=== PATIENT | female | born 1940 | race African-American/Black ===

== ENCOUNTER 2024-07-21 09:51 | Emergency (ER) | payer BC ==
[~2024-07-21] VITALS: Ht 170.2 cm; Wt 86.0 kg
[2024-07-21 09:53] VITALS: TEMP 98.2
[2024-07-21] MEDS: ACETAMINOPHEN 325MG TABLET PO NR (13:05)
[2024-07-21] MEDS: KETAMINE HCL 50 MG/ML 10ML IV NR (14:33)
[2024-07-21 14:49] VITALS: O2SAT 99
[2024-07-21 16:30] VITALS: BP 160/76; PULSE 89; RESP 17; O2SAT 97
== END 2024-07-21 16:51 | disposition home or self-care (01) ==
LOC: ER 09:51
DX: S43.001A Unspecified subluxation of right shoulder joint, initial encounter (principal); M75.101 Unspecified rotator cuff tear or rupture of right shoulder, not specified as traumatic; I10 Essential (primary) hypertension; X58.XXXA Exposure to other specified factors, initial encounter; Y93.89 Activity, other specified; Y92.89 Other specified places as the place of occurrence of the external cause; Y99.8 Other external cause status
CPT/HCPCS: 99291; 23650; 73030; J3490; A4663; A4606